=== PATIENT | male | born 1945 | race Caucasian/White ===

== ENCOUNTER → 2016-12-15 | Outpatient (CLI) | payer OTHER, BC ==
[~2016-12-15] MED LIST: GADOBUTROL 10 ML VIAL IVP ONE
[2016-12-15 16:14] LABS: CREATININE 1.1 mg/dL (0.7-1.3); GLOMERULAR FILTRATION RATE > 60
== END ==
LOC: FIMAGING 15:13
PROVIDERS: ATTEND Physician Assistant Medical
DX: G35 Multiple sclerosis (principal); I63.9 Cerebral infarction, unspecified
CPT/HCPCS: 70553; A9585

== ENCOUNTER → 2018-03-03 | Outpatient (CLI) | payer OTHER | LOC: FIMAGING 08:16 | PROVIDERS: ATTEND Physician Assistant Medical | DX: G35 Multiple sclerosis (principal); M50.30 Other cervical disc degeneration, unspecified cervical region ==

== ENCOUNTER → 2018-07-27 | Outpatient (CLI) | payer OTHER ==
[~2018-07-27] MED LIST changes: -GADOBUTROL 10 ML VIAL IVP ONE; +IOHEXOL 350mgI/ML (OMNIPAQUE) 150 ML BTL IV ONE
== END ==
LOC: FIMAGING 09:26
PROVIDERS: ATTEND Internal Medicine Cardiovascular Disease
DX: I77.810 Thoracic aortic ectasia (principal); K76.89 Other specified diseases of liver; K87 Disorders of gallbladder, biliary tract and pancreas in diseases classified elsewhere
CPT/HCPCS: 71275; Q9967; 82565-PO